=== PATIENT | male | born 1995 | race Hispanic/Latino ===

== ENCOUNTER 2020-11-05 09:11 | Emergency (ER) | payer OTHER, SELFPAY ==
--- NOTE | 2020-11-05 10:25 | RAD REPORT ---
EXAM DESCRIPTION: CT - Head Brain Wo Cont - 11/05/2020 10:07 am CLINICAL HISTORY: Headache COMPARISON: None. TECHNIQUE: Computed axial tomography of the head was obtained. IV contrast was not requested. All CT scans are performed using dose optimization technique as appropriate and may include automated exposure control or mA/KV adjustment according to patient size. FINDINGS: An intracranial bleed is not seen . The ventricles are normal in caliber. No extra-axial fluid collection is noted. Fluid within the sinuses/ mastoids is not seen. IMPRESSION: No acute intracranial abnormality is seen. If patient's symptoms persist MRI of the bra in would be recommended.
--- NOTE | 2020-11-05 11:16 | ER ---
Nurse's Notes [facility] Name: Masoud Chandler Jr Age: 24 yrs Sex: Male : 1995 Arrival Date: 11/05/2020 Time: 09:12 Bed 15 Private MD: Diagnosis: Superficial injury of head Presentation: 11/05 09:12 Chief complaint: Chief complaint: Patient states: "I work at [employer] and Wednesday I was aa5 unloading a truck and a plastic bin hit my head and then on I was picking something up off the floor and my girlfriend has a plant hanging from the ceiling so I didn't see it and hit my head again then and that time I passed out". Pt c/o headache since head injuries. Denies nausea/vomiting. 09:34 Coronavirus screen: At this time, the client does not indicate any symptoms associated aa5 with coronavirus-19. Ebola Screen: Patient negative for fever greater than or equal to 101.5 degrees Fahrenheit, and additional compatible Ebola Virus Disease symptoms. Initial Sepsis Screen: Does the patient meet any 2 criteria? No. Patient's initial sepsis screen is negative. Does the patient have a suspected source of infection? No. Patient's initial sepsis screen is negative. Risk Assessment: Do you want to hurt yourself or someone else? Patient reports no desire to harm self or others. Onset of symptoms was 2020. 09:34 Acuity: LORETO 4 aa5 09:34 Method Of Arrival: Ambulatory aa5 Historical: - Allergies: 09:38 No Known Allergies; aa5 - Home Meds: 09:38 None [Active]; aa5 - PMHx: 09:38 None; aa5 - PSHx: 09:38 None; aa5 - Immunization history:: Adult Immunizations up to date. - Social history:: Smoking status: Patient denies any tobacco usage or history of. - Family history:: not pertinent. Screenin:01 Abuse screen: Denies threats or abuse. Nutritional screening: No deficits noted. vg1 Tuberculosis screening: No symptoms or risk factors identified. Fall Risk Fall in past 12 months (25 points). No secondary diagnosis (0 pts). No IV (0 pts). Ambulatory Aid- None/Bed Rest/Nurse Assist (0 pts). Gait- Normal/Bed Rest/Wheelchair (0 pts) Mental Status- Oriented to own ability (0 pts). Total Sadler Fall Scale indicates No Risk (0-24 pts). Assessment: 10:00 General: Appears in no apparent distress. comfortable, Behavior is calm, cooperative. vg1 Pain: Complains of pain in head Pain currently is 3 out of 10 on a pain scale. Pain began about a week ago. Neuro: Level of Consciousness is awake, alert, obeys commands, Oriented to person, place, time, situation, Denies blurred vision dizziness. Cardiovascular: Patient's skin is warm and dry. Respiratory: Airway is patent Respiratory effort is even, unlabored. GI: Reports diarrhea, nausea, vomiting. : No signs and/or symptoms were reported regarding the genitourinary system. EENT: No signs and/or symptoms were reported regarding the EENT system. Derm: Skin is intact, is healthy with good turgor. Musculoskeletal: Circulation, motion, and sensation intact. 11:24 Reassessment: Patient is alert, oriented x 3, equal unlabored respirations, skin aa5 warm/dry/pink. Vital Signs: 09:34 BP 126 / 75; Pulse 60; Resp 16 S; Temp 98.3(O); Pulse Ox 99% on R/A; Weight 83.91 kg aa5 (R); Height 5 ft. 10 in. (177.80 cm) (R); Pain 3/10; 10:01 BP 126 / 72; Pulse 70; Resp 16; Pulse Ox 99% on R/A; vg1 09:34 Body Mass Index 26.54 (83.91 kg, 177.80 cm) aa5 [place] Coma Score: 11:07 Eye Response: spontaneous(4). Verbal Response: oriented(5). Motor Response: obeys kierra commands(6). Total: 15. 11:10 Eye Response: spontaneous(4). Verbal Response: oriented(5). Motor Response: obeys kierra commands(6). Total: 15. ED Course: 09:12 Patient arrived in ED. ds1 09:12 Arm band placed on. aa5 09:33 Hans Chamberlain RN is Primary Nurse. jl7 09:33 Harry Araya MD is Attending Physician. kierra 09:38 Triage completed. aa5 10:01 Patient has correct armband on for positive identification. Bed in low position. Call vg1 light in reach. Side rails up X 1. 10:02 Primary Nurse role handed off by Hans Chamberlain, RN vg1 10:02 Hortencia Kellogg, RN is Primary Nurse. vg1 10:05 CT Head Brain wo Cont In Process Unspecified. EDNC 11:14 Davis Connell MD is Referral Physician. [facility] 11:24 No provider procedures requiring assistance completed. Patient did not have IV access aa5 during this emergency room visit. Administered Medications: No medications were administered Outcome: 11:16 Discharge ordered by . kierra 11:22 Discharged to home ambulatory. aa5 11:22 Condition: good 11:22 Discharge instructions given to patient, Instructed on discharge instructions, follow aa5 up and referral plans. Demonstrated understanding of instructions, follow-up care. 11:24 Patient left the ED. aa5 Signatures: Dispatcher [employer] EDNC Harry Araya MD MD cha Sanford, Demi ds1 Magy Miller RN RN aa5 Hans Chamberlain, LAURA RN jl7 Hortencia Kellogg, RN RN vg1 Corrections: (The following items were deleted from the chart) 09:38 09:12 Chief complaint: aa5 aa5
--- NOTE | 2020-11-05 11:16 | EDPHYS ---
Physician Documentation [facility] Name: Masoud Chandler Jr Age: 24 yrs Sex: Male : 1995 Arrival Date: 11/05/2020 Time: 09:12 Bed 15 Private MD: ED Physician Harry Araya HPI: 11/05 11:07 This 24 yrs old Male presents to ER via Ambulatory with complaints of Head kierra Injury With LOC-Adult, Headache. 11:07 The patient or guardian reports pain, tenderness. The complaints affect the top of kierra head, left frontal area, left side of the back of head, left occipital area, left base of the skull, right frontal area, right side of the back of head, right occipital area and right base of the skull. Context of injury: The problem was sustained at home. Onset: The symptoms/episode began/occurred yesterday. Associated signs and symptoms: Loss of consciousness: This patient experience a loss of consciousness, that was brief, Pertinent positives: headache. Severity of symptoms: At their worst the symptoms were moderate, in the emergency department the symptoms have improved, mildly. The patient has not experienced similar symptoms in the past. Historical: - Allergies: 09:38 No Known Allergies; aa5 - Home Meds: 09:38 None [Active]; aa5 - PMHx: 09:38 None; aa5 - PSHx: 09:38 None; aa5 - Immunization history:: Adult Immunizations up to date. - Social history:: Smoking status: Patient denies any tobacco usage or history of. - Family history:: not pertinent. ROS: 11:07 Constitutional: Negative for fever, chills, and weight loss, Eyes: Negative for injury, kierra pain, redness, and discharge, ENT: Negative for injury, pain, and discharge, Neck: Negative for injury, pain, and swelling, Cardiovascular: Negative for chest pain, palpitations, and edema, Respiratory: Negative for shortness of breath, cough, wheezing, and pleuritic chest pain, Abdomen/GI: Negative for abdominal pain, nausea, vomiting, diarrhea, and constipation, Back: Negative for injury and pain, : Negative for injury, bleeding, discharge, and swelling, MS/Extremity: Negative for injury and deformity, Skin: Negative for injury, rash, and discoloration, Psych: Negative for depression, anxiety, suicide ideation, homicidal ideation, and hallucinations, Allergy/Immunology: Negative for hives, rash, and allergies, Endocrine: Negative for neck swelling, polydipsia, polyuria, polyphagia, and marked weight changes. 11:07 Neuro: Positive for dizziness, headache. Exam: 11:07 Constitutional: This is a well developed, well nourished patient who is awake, alert, kierra and in no acute distress. Head/Face: Normocephalic, atraumatic. Eyes: Pupils equal round and reactive to light, extra-ocular motions intact. Lids and lashes normal. Conjunctiva and sclera are non-icteric and not injected. Cornea within normal limits. Periorbital areas with no swelling, redness, or edema. ENT: Nares patent. No nasal discharge, no septal abnormalities noted. Tympanic membranes are normal and external auditory canals are clear. Oropharynx with no redness, swelling, or masses, exudates, or evidence of obstruction, uvula midline. Mucous membranes moist. Neck: Trachea midline, no thyromegaly or masses palpated, and no cervical lymphadenopathy. Supple, full range of motion without nuchal rigidity, or vertebral point tenderness. No Meningismus. Chest/axilla: Normal chest wall appearance and motion. Nontender with no deformity. No lesions are appreciated. Cardiovascular: Regular rate and rhythm with a normal S1 and S2. No gallops, murmurs, or rubs. Normal PMI, no JVD. No pulse deficits. Respiratory: Lungs have equal breath sounds bilaterally, clear to auscultation and percussion. No rales, rhonchi or wheezes noted. No increased work of breathing, no retractions or nasal flaring. Abdomen/GI: Soft, non-tender, with normal bowel sounds. No distension or tympany. No guarding or rebound. No evidence of tenderness throughout. Back: No spinal tenderness. No costovertebral tenderness. Full range of motion. Skin: Warm, dry with normal turgor. Normal color with no rashes, no lesions, and no evidence of cellulitis. MS/ Extremity: Pulses equal, no cyanosis. Neurovascular intact. Full, normal range of motion. Neuro: Awake and alert, GCS 15, oriented to person, place, time, and situation. Cranial nerves II-XII grossly intact. Motor strength 5/5 in all extremities. Sensory grossly intact. Cerebellar exam normal. Normal gait. Psych: Awake, alert, with orientation to person, place and time. Behavior, mood, and affect are within normal limits. Vital Signs: 09:34 BP 126 / 75; Pulse 60; Resp 16 S; Temp 98.3(O); Pulse Ox 99% on R/A; Weight 83.91 kg aa5 (R); Height 5 ft. 10 in. (177.80 cm) (R); Pain 3/10; 10:01 BP 126 / 72; Pulse 70; Resp 16; Pulse Ox 99% on R/A; vg1 09:34 Body Mass Index 26.54 (83.91 kg, 177.80 cm) aa5 [place] Coma Score: 11:07 Eye Response: spontaneous(4). Verbal Response: oriented(5). Motor Response: obeys kierra commands(6). Total: 15. 11:10 Eye Response: spontaneous(4). Verbal Response: oriented(5). Motor Response: obeys kierra commands(6). Total: 15. MDM: 09:33 Patient medically screened. kierra 11:10 Differential diagnosis: Contusion of Hematoma on head, Intracranial bleed- Concussion. kierra Data reviewed: vital signs, nurses notes, radiologic studies, CT scan. Data interpreted: monitoring and evaluation advisor: not applicable for this patient encounter. rate is 99 beats/min, rhythm is regular, Pulse oximetry: on room air is 99 %. Counseling: I had a detailed discussion with the patient and/or guardian regarding: the historical points, exam findings, and any diagnostic results supporting the discharge/admit diagnosis, radiology results, the need for outpatient follow up, for definitive care, a family practitioner. 06 09:34 Order name: CT Head Brain wo Cont kierra Administered Medications: No medications were administered Disposition: 11/05/20 11:16 Discharged to Home. Impression: Superficial injury of head. - Condition is Stable. - Discharge Instructions: Head Injury, Adult, Head Injury, Adult, [id number]. - Medication Reconciliation Form, Thank You Letter, Antibiotic Education, Prescription Opioid Use, Work release form form. - Follow up: Private Physician; When: 2 - 3 days; Reason: Recheck today's complaints, Continuance of care, Re-evaluation by your physician. Follow up: Davis Connell MD; When: 2 - 3 days; Reason: Recheck today's complaints, Re-evaluation by your physician. - Problem is new. - Symptoms have improved. Signatures: Dispatcher [employer] Harry Lott MD MD cha Calderon, Audri, RN RN aa5 Corrections: (The following items were deleted from the chart) 11:24 11:16 11/05/2020 11:16 Discharged to Home. Impression: Superficial injury of head. aa5 Condition is Stable. Forms are Work release form, Medication Reconciliation Form, Thank You Letter, Antibiotic Education, Prescription Opioid Use. Follow up: Private Physician; When: 2 - 3 days; Reason: Recheck today's complaints, Continuance of care, Re-evaluation by your physician. Follow up: Davis Connell; When: 2 - 3 days; Reason: Recheck today's complaints, Re-evaluation by your physician. Problem is new. Symptoms have improved. kierra
[2020-11-05 11:35] VITALS: TEMP 98.3; O2SAT 99
[2020-11-05 11:36] VITALS: BP 126/72
== END 2020-11-05 11:24 | disposition home or self-care (01) ==
LOC: ER 09:11
DX: S00.90XA Unspecified superficial injury of unspecified part of head, initial encounter (principal); X58.XXXA Exposure to other specified factors, initial encounter
CPT/HCPCS: 70450; 99283